=== PATIENT | male | born 1960 | race African-American/Black ===

== ENCOUNTER 2016-06-26 15:33 | Emergency (ER) | payer SELFPAY ==
[~2016-06-26 15:33] MED LIST: ASPIRIN325 MG PO; PLAVIX75 MG PO; PRAVACHOL40 MG PO
[2016-06-26 16:06] LABS: BASOPHILS 0.5 % (0.0-2.0); EOSINOPHILS 2.7 % (0-7); HEMATOCRIT 47.3 % (42.0-54.0); HEMOGLOBIN 15.6 g/dL (13.5-17.5); IMMATURE GRANULOCYTES 0.2 % (0-5); LYMPHOCYTES 31.5 % (15-50); MCH 27.9 pg (26.0-34.0); MCV 84.6 fL (80.0-100.0); MEAN PLATELET VOLUME 10.7 fL (7.4-10.4); MONOCYTES 8.1 % (2-11); PLATELET COUNT 235 10x3/uL (130-400); RBC 5.59 10x6/uL (4.20-6.10); RDW 13.4 % (11.5-14.5); WBC 12.7 10x3/uL (4.8-10.8)
[2016-06-26 16:11] LABS: APPEARANCE CLEAR (CLEAR); BILIRUBIN NEGATIVE (NEGATIVE); COLOR YELLOW (YELLOW); GLUCOSE NEGATIVE (NEGATIVE); KETONE NEGATIVE (NEGATIVE); LEUKOCYTE ESTERASE NEGATIVE (NEGATIVE); NITRITE NEGATIVE (NEGATIVE); PROTEIN NEGATIVE (NEGATIVE); UROBILINOGEN NORMAL (NORMAL)
[2016-06-26 16:20] LABS: ALBUMIN 3.9 g/dL (3.4-5.0); ALKALINE PHOSPHATASE 89 U/L (46-116); ALT (SGPT) 30 U/L (10-68); BILIRUBIN - TOTAL 0.27 mg/dL (0.2-1.3); CALC OSMOLALITY 280 mosm/kg (275-300); CALCIUM 8.9 mg/dL (8.5-10.1); CARBON DIOXIDE 26.4 mmol/L (21.0-32.0); CHLORIDE - SERUM 105 mmol/L (98-107); CREATININE - SERUM 0.8 mg/dL (0.6-1.3); GLUCOSE 125 mg/dL (74-106); PROTEIN - SERUM 7.7 g/dL (6.4-8.2); SODIUM 141 mmol/L (136-145); UREA NITROGEN 10 mg/dL (7-18); eGFR NON AFRICAN AMERICAN > 90 mL/min (90-120)
[2016-06-26 16:23] LABS: CREATINE KINASE 219 UL (21-232)
[2016-06-26 16:24] LABS: TROPONIN-I < 0.017 ng/mL (0.000-0.060)
[2016-06-26 16:50] LABS: CKMB 0.8 U/L (0.0-3.6)
== END 2016-06-26 17:52 | disposition home or self-care (01) ==
LOC: D.ER 15:33
PROVIDERS: Emergency Medicine
DX: R30.0 Dysuria (principal); N23 Unspecified renal colic; Z91.14 Patient's other noncompliance with medication regimen; F17.200 Nicotine dependence, unspecified, uncomplicated

== ENCOUNTER 2016-11-07 23:08 | Observation (INO) | payer MEDICAID ==
[~2016-11-07] VITALS: Ht 170.2 cm; Wt 67.8 kg
[2016-11-07 23:37] LABS: HEMATOCRIT 44.7 % (42.0-54.0); HEMOGLOBIN 14.9 g/dL (13.5-17.5); LYMPHOCYTES 33.8 % (15-50); MCH 27.9 pg (26.0-34.0); MCHC 33.3 g/dL (31.0-37.0); MCV 83.7 fL (80.0-100.0); MEAN PLATELET VOLUME 10.2 fL (7.4-10.4); NEUTROPHILS 59.2 % (40-80); PLATELET COUNT 253 10x3/uL (130-400); RBC 5.34 10x6/uL (4.20-6.10); RDW 13.9 % (11.5-14.5); WBC 10.4 10x3/uL (4.8-10.8)
[2016-11-07 23:52] LABS: ALBUMIN 3.5 g/dL (3.4-5.0); ALKALINE PHOSPHATASE 114 U/L (46-116); ALT (SGPT) 42 U/L (10-68); BILIRUBIN - TOTAL 0.28 mg/dL (0.2-1.3); CALC OSMOLALITY 280 mosm/kg (275-300); CALCIUM 9.3 mg/dL (8.5-10.1); CARBON DIOXIDE 25.5 mmol/L (21.0-32.0); CHLORIDE - SERUM 106 mmol/L (98-107); CREATININE - SERUM 0.9 mg/dL (0.6-1.3); GLUCOSE 140 mg/dL (74-106); POTASSIUM - SERUM 4.6 mmol/L (3.5-5.1); PROTEIN - SERUM 7.6 g/dL (6.4-8.2); SODIUM 141 mmol/L (136-145); UREA NITROGEN 8 mg/dL (7-18); eGFR NON AFRICAN AMERICAN > 90 mL/min (90-120)
[2016-11-08 00:01] LABS: CHOL - HDL RATIO 3.2 ratio (2.3-4.9); CHOLESTEROL, TOTAL 171 mg/dL (0-200); CKMB 0.2 U/L (0.0-3.6); CREATINE KINASE 107 UL (21-232); HDL CHOLESTEROL 54 mg/dL (32-96); LDL CHOLESTEROL 95 mg/dL (0-100); LDL-HDL RATIO 1.8 ratio (1.5-3.5); TRIGLYCERIDE 111 mg/dL (30-200); TROPONIN-I < 0.017 ng/mL (0.000-0.060)
[2016-11-08 02:57] LABS: CKMB 0.2 U/L (0.0-3.6); CREATINE KINASE 85 UL (21-232); TROPONIN-I < 0.017 ng/mL (0.000-0.060)
[2016-11-08 04:07] VITALS: BP 137/82; Ht 170.2 cm; Wt 67.8 kg
[2016-11-08 05:25] VITALS: BP 112/62
[2016-11-08 08:00] VITALS: BP 101/53
--- NOTE | 2016-11-08 08:24 | NUR ---
AM ROUNDS - PT IN BED AND APPEARS TO BE SLEEPING WITH EQUAL AND NON LABORED BREATHING. O2 AT 2L VIA NC. MONITOR SHOWING SR, HR 75. WILL CONTINUE TO MONITOR
[2016-11-08 08:30] LABS: CKMB 0.5 U/L (0.0-3.6); CREATINE KINASE 77 UL (21-232)
[2016-11-08 08:35] LABS: TROPONIN-I < 0.017 ng/mL (0.000-0.060)
--- NOTE | 2016-11-08 11:18 | NUR ---
MORNING MEDICATION GIVEN. PT TOLERATED WELL. WILL CONTINUE TO MONITOR
[2016-11-08 12:00] VITALS: BP 103/64
[2016-11-08 15:00] LABS: CKMB 0.2 U/L (0.0-3.6); CREATINE KINASE 79 UL (21-232); TROPONIN-I < 0.017 ng/mL (0.000-0.060)
[2016-11-08 16:00] VITALS: BP 118/61
--- NOTE | 2016-11-08 20:50 | NUR ---
ALERT/AWAKE ORIENTED X 4. TALKING TO FAMILY MEMBERS. IV IN L FA INTACT SL. ON 02 AT 2L/NC. RR EVEN U/L. TELEMETRY SHOWS 97 SR. DENIES PAIN OR ANY NEEDS.
[2016-11-08 21:41] VITALS: BP 124/65
[2016-11-09 01:03] VITALS: BP 105/77
--- NOTE | 2016-11-09 01:30 | NUR ---
AMBULATING IN HALLWAY. REQUESTED SOME TAPE OVER NICOTINE PATCH. HAD TAKEN A SHOWER.
[2016-11-09 05:36] VITALS: BP 127/59
[2016-11-09 08:00] VITALS: BP 146/66
--- NOTE | 2016-11-09 08:19 | NUR ---
AM ROUNDS - PT IS AWAKE IN BED. SIDE RAILS UP X1. CALL CHAMBERS IN USE/REACH. MONITOR SHOWING ST. O2 AT 2L VIA NC. IV TO LEFT FA, SL. PT IS UP AD VINNY. PT IS WONDERING WHY HE IS NPO. ER PLACED PT NPO WITH NO REASON OR NO NOTE. PT IS NOT GOING FOR ANY PROCEDURE. CALLED THE ER TO VERIFY AND WAS INFORMED THAT THE ORDER WAS PLACED ON THE WRONG PT. CHANGED DIET ORDER BACK TO PREVIOUS ORDER. NO FUTHER NEEDS AT THIS TIME. WILL CONTINUE TO MONITOR
[2016-11-09 12:00] VITALS: BP 110/61
--- NOTE | 2016-11-09 13:38 | NUR ---
PT LEFT THE FLOOR
[2016-11-09] MEDS ORDERED: IPRAT-ALBUT 0.5-3 ML UPD (15:11)
--- NOTE | 2016-11-09 16:08 | NUR ---
D/C VERBAL AND WRITTEN GIVEN TO PT. PT REFUSED A WHEELCHAIR TO BE TAKEN OUT AND WANTED TO WALK OUT. IV IN LEFT FA REMOVED, CATH TIP INTACT. HEART MONITOR REMOVED AND RETURNED TO BODY JOINER. WILL D/C
--- NOTE | 2016-11-09 17:16 | NUR ---
Patient Name: PAXTON GUDINO Admission Status: ER Accout number: [id number] Admission Date: 11-08-2016 : 1960 Admission Diagnosis: Attending: CHRIS Current LOS: 1 Anticipated DC Date: 11-09-2016 Planned Disposition: Home Primary Insurance: MEDICAID [place] Discharge Planning Comments: * Is the patient Alert and Oriented? Yes 0 * How many steps to enter\exit or inside your home? 4 0 * PCP NONE SUBMITTED PAPERWORK TO [facility] IN [place] FOR CONSIDERATION 0 * Pharmacy [facility] 0 * Preadmission Environment Home with Family 0 * ADLs Independent 0 * Equipment None 0 * Other Equipment [facility] - MEDICAL EQUIPMENT PROVIDER PREFERENCE 0 * List name and contact numbers for known caregivers / representatives who currently or will assist patient after discharge: VIKAS GUDINO, DAUGHTER, 0 * Community resources currently utilized None 0 * Please name any agencies selected above. NONE 0 * Additional services required to return to the preadmission environment? No 0 * Can the patient safely return to the preadmission environment? Yes 0 * Has this patient been hospitalized within the prior 30 days at any hospital? No 0 CM MET WITH PT AND DAUGHTER IN ROOM TO DISCUSS DISCHARGE PLANNING AND NEEDS. PT REPORTS LIVING AT HOME INDEPENDENTLY AND ALONE, BUT IS GOING TO HIS SISTERS HOME LOCATED AT [address] [place], [place] [id number], FOR RECOVERY. PT HAS NO MEDICAL EQUIPMENT AND NO OUTSIDE SERVICES ASSISTING IN THE HOME. CM DISCUSSED AVAILABILITY OF HOME HEALTH, REHAB SERVICES AND MEDICAL EQUIPMENT. PT DENIES DISCHARGE NEEDS OTHER THAN THE NEBULIZER, PT IS AGREEABLE TO [facility] FOR PROVIDER BUT DOES NOT WANT TO WAIT FOR HOSPITAL DELIVERY; CM EXPLAINED THAT MEDICAID REQUIRES PREAUTHORIZATION AND ONCE RECEIVED, IT CAN BE DELIVERED TO HIS SISTER'S HOME WHERE PT WILL BE. PT DOES NOT WANT TO PAY OWEN FOR NEBULIZER. PT AGREEABLE TO PLAN FOR DISCHARGE AND HOME DELIVERY AFTER INSURANCE VERIFICATION, REPORTS HIS DAUGHTER IS HERE TO PICK HIM UP FOR DISCHARGE HOME NOW. CM NOTIFIED BEDSIDE NURSE OF PT'S DESIRE TO LEAVE NOW. CM SPOKE TO [facility] WHO INSTRUCTED CM TO FAX REFERRAL TO OFFICE. MADELYN CALLED AND SPOKE TO ROMY BEATTY [facility], WHO REPORTS DELIVERY MAY NOT BE TODAY, DEPENDING ON MEDICAID VERIFICATION. CM FAXED REFERRAL TO [facility] AT [phone]. [facility] TO VERIFY PT'S MEDICAID AND IF AUTHORIZED BY INSURANCE, DELIVER NEBULIZER TO PT'S HOME. Supervisor Taping: Dorian Blanc
[2016-11-10 07:22] LABS: IMMUNOGLOBULIN E 437 IU/mL (0-100)
== END 2016-11-09 16:13 | disposition home or self-care (01) ==
LOC: D.ER 23:08 → D.M2 11-08 02:39 → OBSVTIME 11-08 02:39 → D.M2 11-08 02:39
PROVIDERS: Emergency Medicine; Internal Medicine Pulmonary Disease; ADMIT Internal Medicine Cardiovascular Disease
DX: J40 Bronchitis, not specified as acute or chronic (principal); Z72.0 Tobacco use; I10 Essential (primary) hypertension; Z72.89 Other problems related to lifestyle; I25.10 Atherosclerotic heart disease of native coronary artery without angina pectoris; Z95.5 Presence of coronary angioplasty implant and graft

== ENCOUNTER 2017-04-28 00:37 | Observation (INO) | payer MEDICAID ==
[~2017-04-28 00:37] MED LIST changes: +IPRAT-ALBUT 0.5-3 ML UPD
[2017-04-28 01:00] LABS: BASOPHILS 0.3 % (0-2); EOSINOPHILS 1.9 % (0-7); HEMATOCRIT 43.8 % (42.0-54.0); HEMOGLOBIN 14.7 g/dL (13.5-17.5); IMMATURE GRANULOCYTES 0.3 % (0-5); LYMPHOCYTES 33.1 % (15-50); MCH 28.1 pg (26.0-34.0); MCHC 33.6 g/dL (31.0-37.0); MCV 83.7 fL (80.0-100.0); MEAN PLATELET VOLUME 11.1 fL (7.4-10.4); MONOCYTES 7.4 % (2-11); PLATELET COUNT 231 10x3/uL (130-400); RBC 5.23 10x6/uL (4.20-6.10); RDW 13.5 % (11.5-14.5); WBC 12.5 10x3/uL (4.8-10.8)
[2017-04-28 01:12] LABS: ALBUMIN 3.7 g/dL (3.4-5.0); ALKALINE PHOSPHATASE 92 U/L (46-116); ALT (SGPT) 30 U/L (10-68); CALC OSMOLALITY 277 mosm/kg (275-300); CALCIUM 8.5 mg/dL (8.5-10.1); CARBON DIOXIDE 24.2 mmol/L (21.0-32.0); CHLORIDE - SERUM 105 mmol/L (98-107); CREATININE - SERUM 0.9 mg/dL (0.6-1.3); GLUCOSE 118 mg/dL (74-106); PROTEIN - SERUM 7.2 g/dL (6.4-8.2); SODIUM 139 mmol/L (136-145); UREA NITROGEN 11 mg/dL (7-18); eGFR NON AFRICAN AMERICAN > 90 mL/min (90-120)
[2017-04-28 01:24] LABS: CHOL - HDL RATIO 2.9 ratio (2.3-4.9); CHOLESTEROL, TOTAL 154 mg/dL (0-200); CKMB 0.9 U/L (0.0-3.6); CREATINE KINASE 159 UL (21-232); HDL CHOLESTEROL 53 mg/dL (32-96); LDL CHOLESTEROL 42 mg/dL (0-100); LDL-HDL RATIO 0.8 ratio (1.5-3.5); TRIGLYCERIDE 296 mg/dL (30-200); TROPONIN-I < 0.017 ng/mL (0.000-0.060)
[2017-04-28] MEDS ORDERED: SALINE NASAL SP45 ML NS (03:13)
[2017-04-28 04:50] VITALS: BP 119/68
[2017-04-28 08:16] VITALS: BP 131/60
[2017-04-28 12:34] LABS: CKMB 0.6 U/L (0.0-3.6); CREATINE KINASE 134 UL (21-232); TROPONIN-I < 0.017 ng/mL (0.000-0.060)
[2017-04-28 12:43] VITALS: BP 119/69
[2017-04-28 14:12] VITALS: BP 119/69
== END 2017-04-28 16:05 | disposition home or self-care (01) ==
LOC: D.ER 00:37 → D.M2 02:40 → OBSVTIME 02:40 → D.M2 16:05
PROVIDERS: Emergency Medicine; Family Medicine
DX: R07.9 Chest pain, unspecified (principal); I25.10 Atherosclerotic heart disease of native coronary artery without angina pectoris; Z95.5 Presence of coronary angioplasty implant and graft; F17.203 Nicotine dependence unspecified, with withdrawal; E78.5 Hyperlipidemia, unspecified; I10 Essential (primary) hypertension; R97.20 Elevated prostate specific antigen [PSA]

== ENCOUNTER → 2017-05-25 10:26 | Outpatient (CLI) | payer MEDICAID ==
[~2017-05-25 10:26] MED LIST changes: +SALINE NASAL SP45 ML NS
== END | disposition home or self-care (01) ==
LOC: D.RT 10:26
DX: J44.9 Chronic obstructive pulmonary disease, unspecified (principal)

== ENCOUNTER → 2017-12-22 08:59 | Outpatient (CLI) | payer MEDICAID ==
[~2017-12-22] VITALS: Ht 170.2 cm; Wt 68.2 kg
--- NOTE | ~2017-12-22 | OP ---
PATIENT NAME: PAXTON GUDINO JR MEDICAL RECORD: [id number] :[birth year] LOCATION:D.CAT ADMISSION DATE: SURGEON: TRI KELLOGG MD DATE OF OPERATION: 12/22/2017 PROCEDURES: 1. PTCA RCA. 2. Left heart catheterization. 3. Selective coronary angiography. 4. Left ventriculogram. INDICATION: Angina and coronary artery disease. PROCEDURE IN DETAIL: After informed consent was obtained today and after a detailed description of risks, benefits as well as alternative therapies, the patient elected to proceed with angiogram and angioplasty. The right radial area was prepped and draped in normal sterile fashion. Right radial artery was cannulated via modified Seldinger technique with placement of 6-Canadian sheath. All catheters exchanged through this sheath. FINDINGS: The left ventriculogram was performed in standard 30-degree ROJAS view reveals preserved cardiac wall motion, ejection fraction 55% to 60%. SELECTIVE CORONARY ANGIOGRAPHY: 1. Left main showed no significant angiographic disease. 2. Left anterior descending has previously placed stents in the LAD and diagonal. These are widely patent with no significant restenosis. No disease elsewise throughout the LAD or its branches. 3. Left circumflex is closed. 4. The right coronary artery has previously placed stents. There is 95% in-stent restenosis in the mid vessel. PTCA OF THE RCA: For the in-stent restenosis of the RCA, high pressure PTCA was made with a 3.0 balloon to 21 atmospheres. Result was 0% residual stenosis. OVERALL IMPRESSION: Successful high pressure percutaneous transluminal coronary angioplasty for in-stent restenosis of the right coronary artery going from 95% initial stenosis to 0% residual. TRANSINT:[id number] Voice Confirmation ID: [id number] DOCUMENT ID: [id number] TRI KELLOGG MD at 1834 CC: [id number] DICTATION DATE: 12/22/17 1151 TICKET TAKER: 12/22/17 [address] [place] [address]
--- NOTE | ~2017-12-22 | HEMODYNAMI ---
PATIENT:PAXTON GUDINO JR MEDICAL RECORD: [id number] : [birth year] LOCATION:DReinaCAT ADMISSION DATE: 12/22/17 Generatedon:12/22/201711:52 Patient name: PAXTON GUDINO Patient #: [id number] SSN: : 1960 Date of study: 12/22/2017 Page: Of Hemodynamic Procedure Report Patient Data Patient Demographics Procedure consent was obtained First Name: PAXTON Gender: Male Last Name: TERESE Suffix: Patient #: [id number] : 1960 Age: 57 year(s) Accession #: Race: Black [id number] Additional ID: [id number] Contact details Address: [address] [place] [address] State: [place] City: [facility] Zip code: [address] Past Medical History Allergies: No known allergies Admission Admission Data Admission Date: 12/22/2017 Admission Time: 8:59 Procedure Procedure Types Cath Procedure Diagnostic Procedure C [facility] w/Coronaries PCI Procedure Coronary Stent PTCA PTCA Initial Procedure Description Procedure Date Procedure Date: 12/22/2017 Procedure Start Time: 11:35 Procedure End Time: 11:48 Procedure Staff Name Function Giuseppe Cantu MD Performing Physician Leonardo Wynn RT Monitor Jack Lyn RN Nurse Lenora Kendall RT Scrub Kenney Browne RT Die Out Worker Procedure Data Cath Procedure Fluoroscopy Diagnostic fluoroscopy Total fluoroscopy Time: 3.7 time: 3.7 min min Diagnostic fluoroscopy Total fluoroscopy dose: dose: 180.8 mGy 180.8 mGy Contrast Material Contrast Material Type Amount (ml) Isovue 300 88 Entry Location Entry Primary Successful Side Size Upsize Upsize Entry Closure Mena ccessful Closure Location (Fr) 1 (Fr) 2 (Fr) Remarks Device Remarks Radial Right 6 Fr Mechanical artery Short Compression Diagnostic catheters Device Type Used For End Catheter Placement DIAGNOSTIC Arch Cape 110cm 5 LV Angiography Fr catheter ([id number]) Procedure Complications No complications Procedure Medications Medication Administration Route Dosage Oxygen etCO2 Nasal cannula 2 l/min Heparin Flush Bag added to field 2 bags (1000units/500ml NS) 0.9% NaCl I.V. 100 ml/hr Radial Cocktail added to field 1 syringe (Verapomil 2mg/Nitro 400mcg/Heparin 1500units) Fentanyl I.V. 50 mcg Versed I.V. 1 mg Fentanyl I.V. 50 mcg Radial Cocktail I.A. 1 syringe (Verapomil 2mg/Nitro 400mcg/Heparin 1500units) Heparin Bolus I.V. 4000 units Integrilin (Bolus I.V. 6.2 ml 2mg/ml) Integrilin (Bolus wasted 3.8 ml 2mg/ml) Plavix P.O. 600 mg Versed I.V. 1 mg Hemodynamics Rest Heart Rate: 69 (bpm) Pressure Samples Time Site Value (mmHg) Purpose Heart Use Rate(bpm) 11:37 LV 94/16,16 Snapshot 90 Gradients Valve Time Site Site Mean SEP/DFP Peak To Heart Use 1 2 (mmHg) (sec/min) Peak Rate (mmHg) (bpm) Aortic 11:37 LV AO 89 Snapshots Pre Cath Intra NCS Post Cath Vital Signs Time Heart Resp SPO2 etCO2 NIBP (mmHg) Rhythm Pain Sedation Rate (ipm) (%) (mmHg) Status Level (bpm) 11:12:20 72 17 98 0 124/88(104) NSR 0 (11) 10(A) , No pain 11:16:28 71 17 100 35.3 131/83(100) NSR 0 (11) 10(A) , No pain 11:20:38 72 17 100 35.3 125/81(98) NSR 0 (11) 10(A) , No pain 11:24:48 71 17 100 36.1 115/76(95) NSR 0 (11) 10(A) , No pain 11:28:53 76 16 99 35.3 128/80(93) NSR 0 (11) 10(A) , No pain 11:33:05 81 17 99 28.6 115/77(85) NSR 0 (11) 9(A) , No pain 11:37:13 84 16 97 39.8 118/71(85) NSR 0 (11) 9(A) , No pain 11:41:23 83 17 96 42.1 111/71(93) NSR 0 (11) 9(A) , No pain 11:45:27 84 16 97 44.4 111/76(94) NSR 0 (11) 9(A) , No pain 11:49:31 87 17 97 43.6 116/73(91) NSR 0 (11) 9(A) , No pain Medications Time Medication Route Dose Verified Delivered Reason Not es Effectiveness by by 11:30:46 Oxygen etCO2 2 l/min Giuseppe Santiago Per physician Nasal Pepe Lyn RN cannula 11:30:54 Heparin Flush added 2 bags Giuseppe Santiago used for Bag to Pepe Lyn RN procedure (1000units/500ml field NS) 11:31:03 0.9% NaCl I.V. 100 Giuseppe Santiago Per physician ml/hr Pepe Lyn RN 11:31:12 Radial Cocktail added 1 Giuseppe Santiago used for (Verapomil to syringe Pepe Lyn RN procedure 2mg/Nitro field 400mcg/Heparin 1500units) 11:32:54 Fentanyl I.V. 50 mcg Giuseppe Santiago for sedation Pepe Lyn RN 11:33:01 Versed I.V. 1 mg Giuseppe Santiago for sedation Pepe Lyn RN 11:36:41 Fentanyl I.V. 50 mcg Giuseppe Santiago for sedation Pepe Lyn RN 11:36:52 Radial Cocktail I.A. 1 Giuseppe Chin for (Verapomil syringe Pepe Cantu MD vasodilation 2mg/Nitro 400mcg/Heparin 1500units) 11:37:17 Versed I.V. 1 mg Giuseppe Santiago for sedation Pepe Lyn RN 11:42:20 Heparin Bolus I.V. 4000 Giuseppe Santiago for units Pepe Lyn RN anticoagulation 11:42:33 Integrilin I.V. 6.2 ml Giuseppe Santiago for (Bolus 2mg/ml) Pepe Lyn RN antiplatelet therapy 11:42:50 Integrilin wasted 3.8 ml Giuseppe Santiago for (Bolus 2mg/ml) Pepe Lyn RN antiplatelet therapy 11:48:38 Plavix P.O. 600 mg Giuseppe Santiago for Pepe Lyn RN antiplatelet therapy Procedure Log Time Note 10:52:51 Kenney Browne RT(R) sent for patient. Start room use. 10:56:03 Time tracking: Regular hours (M-F 7:00 - 5:00) 10:56:08 Plan of Care:Hemodynamics will remain stable., Cardiac rhythm will remain stable., Comfort level will be maintained., Respiratory function will remain adequate., Patient/ family verbilizes understanding of procedure., Procedure tolerated without complication., Recovers from procedure without complications.. 11:05:54 Patient received from Pre/Post Procedure Room to [facility] 3 Alert and oriented. Tansferred to table in Supine position. 11:05:56 Warm blankets applied, and david hugger turned on for patient comfort. 11:05:56 Correct patient and procedure confirmed by team. 11:05:58 Signed procedure consent form obtained from patient. 11:05:59 ECG and BP/O2 sat monitors applied to patient. 11:06:01 Full Disclosure recording started 11:11:22 Vital chart was started 11:11:34 Baseline sample Acquired. 11:11:39 Rhythm: sinus rhythm 11:12:03 H&P Date Dictated: 12/20/2017 Within 30 days and on chart., H&P Addendum completed by physician on day of procedure. (MUST COMPLETE FOR ALL OUTPATIENTS). 11:12:04 Pre-procedure instructions explained to patient. 11:12:04 Pre-op teaching completed and patient verbalized understanding. 11:12:11 Family in waiting room. 11:12:12 Patient NPO since Midnight. 11:12:14 Is the patient allergic to Iodine/contrast media? No. 11:12:16 Is patient on blood thinner?No 11:12:18 Patient diabetic? No. 11:12:21 Previous problem with sedation/anesthesia? No ? 11:12:22 Snore? Yes 11:12:23 Sleep apnea? Yes 11:12:24 Deviated septum? No 11:12:24 Opens mouth fully? Yes 11:12:26 Sticks out tongue? Yes 11:12:30 Airway obstruction? Yes COPD 11:12:34 Dentures? No ? 11:12:36 Pre procedure: right dorsailis pedis pulse 1+ Palpable, but thready & weak; easily obliterated 11:12:37 Modified Pablo's test Ulnar < 7 seconds 11:12:39 Patient pain scale 0/10 ?. 11:12:47 IV patent on arrival in left hand with 0.9% NaCl at [facility]. 11:12:49 Lab results completed and on chart. 11:12:53 Right Radial & Right Groin area was prepped with chlora-prep and draped in sterile fashion 11::55 Alarms reviewed by R. N. 11::55 Sharps counted by scrub and verified by R.N. 11:27:45 Zero performed for pressure channel P1 11:30:46 Oxygen 2 l/min etCO2 Nasal cannula was administered by Jack Lyn RN; Per physician; 11:30:54 Heparin Flush Bag (1000units/500ml NS) 2 bags added to field was administered by Jack Lyn RN; used for procedure; 11:31:03 0.9% NaCl 100 ml/hr I.V. was administered by Jack Lyn RN; Per physician; 11:31:12 Radial Cocktail (Verapomil 2mg/Nitro 400mcg/Heparin 1500units) 1 syringe added to field was administered by Jack Lyn RN; used for procedure; 11:31:51 Physician arrived 11:32:34 --------ALL STOP TIME OUT------ 11:32:35 Final Timeout: patient, procedure, and site verified with staff and physician. All members of the team are in agreement. 11:32:37 Right Radial & Right Groin site verified by team. 11:32:40 Physical assessment completed. ASA score P 2 - A patient with mild systemic disease as per Giuseppe Cantu MD. 11:32:44 Sedation plan: IV Moderate Sedation Medication:Versed, Fentanyl 11:32:54 Fentanyl 50 mcg I.V. was administered by Jack Lyn RN; for sedation; 11:33:01 Versed 1 mg I.V. was administered by Jack Lyn RN; for sedation; 11:35:29 Use device set Radial Dx or PCI 11:35:31 ACIST Syringe (98206) opened to sterile field. 11:35:31 Medline Cath Pack ([id number]) opened to sterile field. 11:35:31 Bag Decanter (2002) opened to sterile field. 11:35:32 DIAGNOSTIC WIRE .035 260cm J wire (586973) opened to sterile field. 11:35:33 ACIST Hand Control (16085) opened to sterile field. 11:35:33 ACIST Manifold (14148) opened to sterile field. 11:35:33 Tegaderm 4 x 4 (1626W) opened to sterile field. 11:35:34 MBrace Wrist Support ([id number]) opened to sterile field. 11:35:38 TR BAND Standard ([id number]) opened to sterile field. 11:35:40 SHEATH 6Fr Prelude Radial ([id number]) opened to sterile field. 11:35:43 Procedure started. 11:35:55 Local anesthetic to right radial artery with Lidocaine 2% by Giuseppe Cantu MD.INITIAL ACCESS ONLY 11:36:05 A 6 Fr Short sheath was inserted into the Right Radial artery 11:36:41 Fentanyl 50 mcg I.V. was administered by Jack Lyn RN; for sedation; 11:36:52 Radial Cocktail (Verapomil 2mg/Nitro 400mcg/Heparin 1500units) 1 syringe I.A. was administered by Giuseppe Cantu MD; for vasodilation; 11:37:17 Versed 1 mg I.V. was administered by Jack Lyn RN; for sedation; 11:37:19 A DIAGNOSTIC Arch Cape 110cm 5 Fr catheter (275830) was advanced over the wire and used for LV Angiography. 11:37:31 LV angiography performed. 11:37:50 EF : 60 % 11:38:00 LCA angiography performed. 11:40:16 RCA angiography performed. 11:40:17 Catheter removed. 11:41:30 6 Fr ar 2 guide catheter was inserted over the wire 11:42:09 GUIDE 6FR AR 2.0 catheter ([id number]) opened to sterile field. 11:42:10 CHOICE PT Extra Support 182cm wire ([id number]) opened to sterile field. 11:42:10 INFLATOR Merit BasixCompak (FC2789) opened to sterile field. 11:42:17 CPTES wire advanced. 11:42:20 Heparin Bolus 4000 units I.V. was administered by Jack Lyn RN; for anticoagulation; 11:42:33 Integrilin (Bolus 2mg/ml) 6.2 ml I.V. was administered by Jack Lyn RN; for antiplatelet therapy; 11:42:50 Integrilin (Bolus 2mg/ml) 3.8 ml wasted was administered by Jack Lyn RN; for antiplatelet therapy; 11:43:13 Procedure type changed to Cath procedure, Diagnostic procedure, LHC, LHC w/Coronaries, PCI procedure, Coronary Stent, PTCA, PTCA Initial 11:43:32 Inflate balloon Inflation number: 1 A EUPHORA 3.0 x 15 Balloon ([id number]) was prepped and advanced across the Mid RCA, then inflated to 21 VIOLETA for 0:10 (min:sec). 11:44:23 Inflation number: 2 The EUPHORA 3.0 x 15 Balloon ([id number]) was reinflated across the Mid RCA, to 21 VIOLETA for 0:10 (min:sec). 11:44:34 Inflation number: 3 The EUPHORA 3.0 x 15 Balloon ([id number]) was reinflated across the Mid RCA, to 21 VIOLETA for 0:10 (min:sec). 11:45:01 Inflation number: 4 The EUPHORA 3.0 x 15 Balloon ([id number]) was reinflated across the Mid RCA, to 21 VIOLETA for 0:18 (min:sec). 11:45:19 Inflation number: 5 The EUPHORA 3.0 x 15 Balloon ([id number]) was reinflated across the Mid RCA, to 21 VIOLETA for 0:10 (min:sec). 11:45:51 Balloon removed over the wire. 11:46:13 Wire removed. 11:46:16 Guide catheter removed. 11:46:23 Sheath removed intact; hemostasis achieved with Mechanical Compression to the Right Radial artery. 11:46:25 Procedure ended.(Physican Out) 11:46:35 Fluoroscopy time 03.70 minutes. 11:46:42 Flurop Dose total: 180.8 11:46:42 Fluoroscopy dose: 180.8 mGy 11:46:46 Contrast amount:Isovue 300 88ml. 11:46:48 Sharps counted by scrub and verified by R.N. 11:46:50 TR band inflated with 0cc of air. 11:46:51 Insertion/operative site no bleeding no hematoma. 11:46:55 Post right radial artery:stable 11:46:57 Post Procedure Pulses reassessed and unchanged 11:47:03 Post procedure rhythm: sinus rhythm 11:47:04 Post procedure instruction explained to patient.Patient verbalizes understanding. 11:47:06 Procedure and supply charges have been captured, reviewed, submitted and are correct. 11:48:32 Procedure Complication : No complications 11:48:34 Vital chart was stopped 11:48:35 See physician's report for complete and final results. 11:48:38 Plavix 600 mg P.O. was administered by Jack Lyn RN; for antiplatelet therapy; 11:48:39 Report given to Pre/Post Procedure Room. 11:48:42 Patient transfered to Pre/Post Procedure Room with Stretcher. 11:48:45 Procedure ended. 11:48:45 Full Disclosure recording stopped 11:48:48 End room use (Document Last) 11:49:03 ACC-PCI Only Patient was given prescriptions, or instructed by Giuseppe Cantu MD to start/continue the following medications upon discharge: Plavix Intervention Summary Intervention Notes Time ActionType Lesion and Equipment Action# Pressure Duration Attributes Used 11:43:32 Inflate Mid RCA EUPHORA 1 21 00:10 balloon 3.0 x 15 Balloon ([id number]) 11:44:23 Reinflate Mid RCA EUPHORA 2 21 00:10 balloon 3.0 x 15 Balloon ([id number]) 11:44:34 Reinflate Mid RCA EUPHORA 3 21 00:10 balloon 3.0 x 15 Balloon ([id number]) 11:45:01 Reinflate Mid RCA EUPHORA 4 21 00:18 balloon 3.0 x 15 Balloon ([id number]) 11:45:19 Reinflate Mid RCA EUPHORA 5 21 00:10 balloon 3.0 x 15 Balloon ([id number]) Device Usage Item Name Manufacture Quantity Catalog Number Hospital Part Current M inimal Lot# / Charge Number Stock Stock Serial# Code ACIST Syringe Acist 1 13892 677427 508096 673538 2 0 (22855) Medical Systems Inc Medline Cath Cardinal 1 [id number] 324483 50283 328117 5 Pack Health ([id number]) Bag Decanter Microtek 1 011603 13899 151108 5 () Medical Inc. DIAGNOSTIC WIRE [facility] 1 200861 843760 328869 263571 3 0 .035 260cm J wire (778739) ACIST Hand Acist 1 93820 419467 079935 751678 5 Control (48232) Medical Systems Inc ACIST Manifold Acist 1 42832 476501 502359 674294 5 (39643) Medical Systems Inc Tegaderm 4 x 4 3M 1 1626W 756422 657310 460155 5 (1626W) MBrace Wrist Advanced 1 140-0250-00 408257 25554 398270 5 Support Vascular ([id number]) Dynamics TR BAND Terumo 1 [id number] 277083 417348 609823 4 0 Standard ([id number]) SHEATH 6Fr Merit 1 [id number] 161596 482148 384271 5 Prelude Radial Medical ([id number]) DIAGNOSTIC Terumo 1 40-6183 568274 030077 654320 5 Arch Cape 110cm 5 Fr catheter (327904) GUIDE 6FR AR Medtronic 1 [id number] 394705 96863 640503 1 2.0 catheter ([id number]) CHOICE PT Extra Coleraine 1 [id number] 020142 878131 836980 5 Support 182cm Scientific wire ([id number]) INFLATOR Merit Merit 1 WU9234 701817 021210 918854 1 5 Urban InternscaYorn (ZS9321) EUPHORA 3.0 x Medtronic 1 [id number] 733044 236970 280440 5 [id number] 15 Balloon ([id number]) Signature Audit [place] Stage Time Signature Unsigned Intra-Procedure 12/22/2017 Leonardo BISWAS(R) 11:52:01 AM Signatures Monitor : Leonardo Wynn RT Signature : Date : Time : [facility] [address], [place] [address]
[~2017-12-22 08:59] MED LIST changes: +CIALIS10 MG PO; +LIPITOR10 MG PO; +OMEPRAZOLE40 MG PO; +PREDNISONE10 MG PO; +SINGULAIR10 MG PO; +UROXATRAL10 MG PO
[2017-12-22 10:01] VITALS: BP 124/88; Ht 170.2 cm; Wt 68.2 kg
[2017-12-22 10:40] LABS: CALC OSMOLALITY 277 mosm/kg (275-300); CALCIUM 8.8 mg/dL (8.5-10.1); CARBON DIOXIDE 27.8 mmol/L (21.0-32.0); CHLORIDE - SERUM 109 mmol/L (98-107); CREATININE - SERUM 0.9 mg/dL (0.6-1.3); GLUCOSE 92 mg/dL (74-106); POTASSIUM - SERUM 4.4 mmol/L (3.5-5.1); SODIUM 140 mmol/L (136-145); UREA NITROGEN 9 mg/dL (7-18); eGFR NON AFRICAN AMERICAN > 90 mL/min (90-120)
[2017-12-22 10:57] LABS: BASOPHILS 0.4 % (0-2); EOSINOPHILS 1.5 % (0-7); HEMATOCRIT 45.6 % (42.0-54.0); HEMOGLOBIN 15.5 g/dL (13.5-17.5); IMMATURE GRANULOCYTES 0.1 % (0-5); LYMPHOCYTES 38.7 % (15-50); MCH 28.5 pg (26.0-34.0); MCV 83.8 fL (80.0-100.0); MEAN PLATELET VOLUME 10.8 fL (7.4-10.4); MONOCYTES 7.1 % (2-11); NEUTROPHILS 52.2 % (40-80); PLATELET COUNT 240 10x3/uL (130-400); RBC 5.44 10x6/uL (4.20-6.10); RDW 13.8 % (11.5-14.5); WBC 6.8 10x3/uL (4.8-10.8)
== END | disposition home or self-care (01) ==
LOC: D.CATH 08:59
PROVIDERS: Internal Medicine Interventional Cardiology
DX: I25.110 Atherosclerotic heart disease of native coronary artery with unstable angina pectoris (principal)

== ENCOUNTER → 2019-08-26 10:25 | Outpatient (CLI) | payer MEDICAID ==
[2017-12-22 10:01] VITALS: BMI 23.5
== END | disposition home or self-care (01) ==
LOC: D.HCCECHO 10:25
PROVIDERS: ATTEND Internal Medicine Cardiovascular Disease
DX: I25.119 Atherosclerotic heart disease of native coronary artery with unspecified angina pectoris (principal)